=== PATIENT | female | born 1990 | race Caucasian/White ===

== ENCOUNTER 2022-12-02 10:29 | Emergency (ER) | payer BC ==
--- NOTE | 2022-12-02 10:35 | ERPHSYRPT ---
- History of Present Illness Time Seen by Provider: 12/02/22 10:40 Source: patient Exam Limitations: no limitations Physician History: This is a morbidly obese 32-year-old white female patient of Dr. Corley who diagnosed this patient with cellulitis 4 days ago. Patient was placed on Keflex 500 mg 4 times daily which she started 4 days ago. The patient wanted to be reassessed but her primary care physician is out of town. The cellulitis is not worse but not significantly improving despite 4 days of Keflex treatment patient is a daily smoker of cigarettes. She is a diabetic and has hypertension. Timing/Duration: day(s) (4) Quality: burning Severity: mild Location: extremities (Bilateral lower extremities below the knee) Possible Causes: no cause identified Associated Symptoms: denies symptoms Allergies/Adverse Reactions: sulfamethoxazole [From Bactrim] Allergy (Mild, Verified 12/02/22 10:46) Hives trimethoprim [From Bactrim] Allergy (Mild, Verified 12/02/22 10:46) Hives amoxicillin Allergy (Unknown, Verified 12/02/22 10:46) acetaminophen [From [facility]] Adverse Reaction (Intermediate, Verified 12/02/22 10:46) syncope hydrocodone [From [facility]] Adverse Reaction (Intermediate, Verified 12/02/22 10:46) syncope Home Medications: Atomoxetine HCl [Strattera] 40 mg PO DAILY 12/02/22 [History] Bumetanide 1 mg [Bumex 1 mg] 1 mg PO DAILY 12/02/22 [History] Cariprazine HCl [Vraylar] 1 cap PO HS 12/02/22 [History] Lamotrigine [Lamotrigine ER] 25 mg PO DAILY 12/02/22 [History] Lisinopril 10 mg [Zestril 10 MG] 10 mg PO DAILY 12/02/22 [History] Metformin HCl 500 mg [Glucophage 500 MG] 500 mg PO DAILY 12/02/22 [History] Metoprolol Succinate 50 mg [Toprol Xl 50 MG] 50 mg PO DAILY 12/02/22 [History] Norgestrel-Ethinyl Estradiol [[id number] Tablet] 1 each PO DAILY 12/02/22 [History] PANTOPRAZOLE 40 mg Tablet [Protonix 40MG Tablet] 40 mg PO QPM 12/02/22 [History] Potassium Chloride [Klor-Con M10] 10 meq PO DAILY 12/02/22 [History] Topiramate [Topiramate ER] 50 mg PO BID 12/02/22 [History] Trazodone HCl 50 mg [Desyrel 50 mg] 50 mg PO HS 12/02/22 [History] clonazePAM [Clonazepam] 0.5 mg PO BID 12/02/22 [History] Travel Risk - International Travel Have you traveled outside of the country in past 3 weeks: No - Coronavirus Screening Are you exhibiting any of the following symptoms?: No Close contact with a COVID-19 positive Pt in past 14-21 Days: No - Review of Systems Constitutional: No Symptoms Eyes: No Symptoms Ears, Nose, & Throat: No Symptoms Respiratory: No Symptoms Cardiac: No Symptoms Abdominal/Gastrointestinal: No Symptoms Genitourinary Symptoms: No Symptoms Musculoskeletal: No Symptoms Skin: Cellulitis (Bilateral lower extremities below the knee) Neurological: No Symptoms Psychological: No Symptoms Endocrine: No Symptoms Hematologic/Lymphatic: No Symptoms Immunological/Allergic: No Symptoms All Other Systems: Reviewed and Negative - Past Medical History Cardiac History: Hypertension Endocrine Medical History: Diabetes Type II - Past Surgical History Past Surgical History: Yes - Nursing Vital Signs Nursing Vital Signs: Initial Vital Signs Temperature 97.1 F 12/02/22 10:39 Pulse Rate 109 H 12/02/22 10:39 Respiratory Rate 22 12/02/22 10:39 Blood Pressure 135/98 12/02/22 10:39 O2 Sat by Pulse Oximetry 100 12/02/22 10:39 Pain Scale Pain Intensity 7 - Physical Exam General Appearance: no apparent distress, alert, anxiety, obese Eye Exam: PERRL/EOMI, eyes nml inspection Ears, Nose, Throat Exam: normal ENT inspection, moist mucous membranes Neck Exam: normal inspection, non-tender, supple, full range of motion Respiratory Exam: airway intact, No chest tenderness, No respiratory distress Gastrointestinal/Abdomen Exam: No tenderness Pelvic Exam: not done Rectal Exam: not done Back Exam: normal inspection, normal range of motion, No CVA tenderness, No vertebral tenderness Extremity Exam: normal range of motion, pelvis stable, tenderness (In the area of mild cellulitis bilateral lower extremities below the knee), other (Warmth present in the area of cellulitis. No drainable abscess present. 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, normal mood/affect, nml cerebellar function, nml station & gait, sensation nml Skin Exam: other (Cellulitis as above) Lymphatic Exam: No adenopathy SpO2 Interpretation: normal O2 Delivery: Room Air - Course Nursing assessment & vital signs reviewed: Yes - Progress Progress: unchanged Counseled pt/family regarding: diagnosis, need for follow-up Medical Desision Making - Diagnostic Testing Diagnostic test were ordered, analyzed, and reviewed by me: No - Risk of complications The pt has a mod risk of morbidity or mortality based on: Need for prescription drug management - Departure Departure Disposition: Home Clinical Impression: Cellulitis Condition: Stable Critical Care Time: No Referrals: JOO CORLEY MD [Primary Care Provider] - Follow up/PCP as directed Additional Instructions: Keep the areas of cellulitis clean daily with soap and water. Make sure you keep your skin moist with unscented lotion twice a day. Take your new anti biotics, Levaquin, as prescribed and stop your Keflex antibiotics. Return to the emergency department 24 hours for reassessment. Prescriptions: Levofloxacin [Levaquin 500 MG Tablet] 500 mg PO DAILY #7 tablet
[2022-12-02] MEDS ORDERED: Levofloxacin 500 MG Tablet PO ONE (11:07)
[2022-12-02] MEDS ORDERED: Levofloxacin 500 MG Tablet ONE (11:09)
[2022-12-02 11:30] VITALS: BP 138/85; PULSE 97; O2SAT 95
== END 2022-12-02 11:37 | disposition home or self-care (01) ==
LOC: ED 10:29
DX: L03.116 Cellulitis of left lower limb (principal); L03.115 Cellulitis of right lower limb; E11.9 Type 2 diabetes mellitus without complications; I10 Essential (primary) hypertension; Z79.84 Long term (current) use of oral hypoglycemic drugs; Z79.899 Other long term (current) drug therapy
CPT/HCPCS: 99281; A9270-GY